=== PATIENT | female | born 1945 | race Caucasian/White ===

== ENCOUNTER 2017-07-20 09:18 | Emergency (ER) | payer BC ==
[2017-07-20 09:29] VITALS: BP 145/65
--- NOTE | 2017-07-20 11:31 | UC ---
Rika Rios Emily, scribed for Dionna Dacosta DO on 07/20/17 at 0942 . Respiratory Complaint HPI - HPI Summary HPI Summary: This patient is a 71 year old F presenting to urgent care with a chief complaint of productive cough that began 5 days ago. The patient rates the pain 1/10 in severity. Symptoms aggravated by deep breaths. Symptoms alleviated by nothing. Patient reports trouble swallowing d/t post nasal drip(resolved), sinus pain, fever (self-reported 100.2), nasal drainage, yellow sputum with cough, coughing spasms that can be painful, gagging from cough, and sinus headache. Patient denies SOB, trouble sleeping, ear ache, sore throat, abd pain , eye drainage, and blood in sputum of cough. Medications reviewed this visit. - History of Current Complaint Chief Complaint: UCRespiratory Stated Complaint: SINUS INFECTION Time Seen by Provider: 07/20/17 09:30 Hx Obtained From: Patient Onset/Duration: Sudden Onset, Lasting Days, Still Present Severity Initially: Mild Severity Currently: Mild Pain Intensity: 1 Pain Scale Used: 0-10 Numeric Character: Cough: Productive, Sputum Description: - Yellow Aggravating Factors: Deep Breaths Alleviating Factors: Nothing Associated Signs And Symptoms: Positive: Fever, Wheezing, URI, Nasal Congestion , Sinus Discomfort. Negative: Dyspnea, Chills, Pleuritic Chest Pain, Hemoptysis , Dizziness, Hoarseness - Allergies/Home Medications Allergies/Adverse Reactions: Allergies Allergy/AdvReac Type Severity Reaction Status Date / Time No Known Allergies Allergy Verified 07/20/17 09:23 Home Medications: Home Medications Cetirizine* [ZyrTEC 10 MG TAB*] 07/20/17 [History] Cholecalciferol [Vitamin D] 07/20/17 [History] Fluticasone NASAL SPRAY 50MCG* [Flonase NASAL SPRAY 50MCG*] 07/20/17 [History] Hydrochlorothiazide TAB* [Hydrodiuril TAB*] 07/20/17 [History] Simvastatin [Zocor 5 MG-] 20 mg 07/20/17 [History] PMH/Surg Hx/FS Hx/Imm Hx - Additional Past Medical History Additional PMH: Seasonal allergies. Hyperlipidemia Previously Healthy: No Cardiovascular History: Hypertension - Surgical History Surgical History: Yes Surgery Procedure, Year, and Place: c section, ovarian wedge resection - Family History Known Family History: Positive: Cardiac Disease - Social History Alcohol Use: Weekly Substance Use Type: None Smoking Status (MU): Never Smoked Tobacco Review of Systems Constitutional: Fever ENT: Nasal Discharge, Sinus Pain/Tenderness, Other - Positive trouble swallowing d/t post nasal drip(this sx resolved by friday) and yellow sputum with cough. Negative eye drainage, ear ache, sore throat, and blood in sputum with cough. Respiratory: Cough, Other - Negative SOB Cardiovascular: Chest Pain - pleuritic with cough Gastrointestinal: Other - Positive gagging from cough. Negative abd pain Neurological: Headache All Other Systems Reviewed And Are Negative: Yes Physical Exam Triage Information Reviewed: Yes Appearance: Well-Appearing, No Pain Distress, Well-Nourished Vital Signs: Initial Vital Signs Temp 98.5 F 07/20/17 09:25 Pulse 82 07/20/17 09:25 Resp 16 07/20/17 09:25 BP 145/65 07/20/17 09:25 Pulse Ox 98 07/20/17 09:25 Vital Signs Reviewed: Yes Eyes: Positive: Conjunctiva Clear. Negative: Discharge ENT: Positive: Hearing grossly normal, Pharynx normal, Nasal congestion, Nasal drainage, TMs normal, Other: - Sinus tenderness. Negative: Tonsillar swelling, Tonsillar exudate, Trismus, Muffled/hoarse voice Neck exam: Normal Neck: Positive: Supple Respiratory: Positive: Lungs clear, No respiratory distress, No accessory muscle use, Expiration - prolonged at bl bases, Other: - Prolonged expiration at the bilateral bases with few lateral wheezes, pt is a chest breather Cardiovascular: Positive: RRR, No Murmur Musculoskeletal: Positive: Other: - obvious scolisis Neurological: Positive: Alert, Muscle Tone Normal Psychological Exam: Normal Psychological: Positive: Age Appropriate Behavior Skin Exam: Normal Skin: Positive: Other - Warm, Dry, Normal Color UC Diagnostic Evaluation - Laboratory O2 Sat by Pulse Oximetry: 98 Respiratory Course/Dx - Course Course Of Treatment: This patient is a 71 year old F presenting to urgent care with a chief complaint of productive cough that began 5 days ago. The patient rates the pain 1/10 in severity. Symptoms aggravated by deep breaths. Symptoms alleviated by nothing. Patient reports trouble swallowing, sinus pain, fever ( self-reported 100.2), nasal drainage, CP, yellow sputum with cough, coughing spasms, gagging from cough, and sinus headache. Patient denies SOB, trouble sleeping, ear ache, sore throat, abd pain, eye drainage, and blood in sputum of cough. Medications reviewed this visit. Physical Exam Findings. Prolonged expiration at the bilateral bases with few lateral wheezes. Medical Decision Making. Patient will be discharged with prescription for Ventolin, Augmentin, and Tessalon with follow up from PCP. The patient is agreeable with this plan. - Differential Dx/Diagnosis Differential Diagnosis/HQI/PQRI: Bronchitis, Lower Resp Infection, Sinusitis Provider Diagnoses: Sinusitis. Bronchospam Discharge - Discharge Plan Condition: Stable Disposition: HOME Prescriptions: Albuterol HFA INHALER* [Ventolin HFA Inhaler*] 2 puff INH Q4H PRN #1 mdi PRN Reason: Sob/Wheezing Amoxicillin/Clavulanate TAB* [Augmentin TAB 875*] 875 mg PO BID #20 tab Benzonatate CAP* [Tessalon 100 MG CAP*] 100 mg PO TID #30 cap Patient Education Materials: Sinusitis (ED), Bronchospasm (ED) Referrals: Carolyn Salinas MD [Medical Doctor] - Additional Instructions: INHALED BRONCHODILATORS: You have received a prescription for an inhaled bronchodilator -- a medication which stimulates the airways in the lung to dilate. This improves the flow of air in asthma, bronchitis, and emphysema. These medicines have some similarity to adrenaline, and can cause similar side effects: shakiness, racing heart, and a sense of nervousness. These side effects decrease with time. Contact your doctor if these side effects are severe. Do not over-use the medicine. Too-frequent use of the inhaler may make it ineffective. Call your doctor if the inhaler is not controlling your symptoms at the prescribed doses. TESSALON PERLES: You have received a prescription for Tessalon Perles (benzonatate). This is a non-narcotic medicine for relief of cough. It usually works in about 15- 20 minutes and lasts around four hours. Tessalon Perles should be swallowed. They should not be chewed or dissolved in the mouth (this can produce temporary numbing of the mouth and choking can occur). If you develop any adverse effects such as wheezing, shortness of breath, hives, rash, itching, or lightheadedness, please return at once. ANTIBIOTICS ARE NOT CURRENTLY INDICATED FOR YOUR CONDITION. HOWEVER, IF YOUR SYMPTOMS WORSEN OR PERSIST FOR OVER THE NEXT 3-5 DAYS, YOU CAN TAKE THE FOLLOWING MEDICATION: AUGMENTIN: Augmentin is a mixture of amoxicillin and clavulanate. Amoxicillin is a member of the penicillin family. It covers the germs likely to cause ear, bronchial, and urinary infections better than plain penicillin. The addition of clavulanate allows it to cover staph infections of the skin, as well as resistant cases of ear and sinus infections. Your physician has chosen Augmentin for you because of the special nature of your situation. Augmentin is best taken with meals. Nausea after taking the medication is rare, but can occur. Diarrhea can occur, particularly in small children. Vaginal yeast infections, and oral thrush in infants are also common. Contact your physician if these problems occur. Allergy to penicillins is common. If you have had an allergic reaction to any drug of the penicillin family, you should never take any other penicillin. Notify your doctor at once if you develop hives, shortness of breath, swelling, or faintness. ANYTIME YOU TAKE AN ANTIBIOTIC, IT IS IMPORTANT TO REPLENISH THE BODY'S SUPPLY OF "GOOD BACTERIA." YOU CAN GET GOOD BACTERIA FROM HIGH QUALITY CULTURED FOODS SUCH LOCAL YOGURT, SOUR KRAUT, JEMMA [place]ADE[place], NATURALLY FERMENTED PICKLES AND PROBIOTIC DRINKS. YOU CAN ALSO GET GOOD BACTERIA FROM A PROBIOTIC SUPPLEMENT. The documentation as recorded by the Rika ch Emily accurately reflects the service I personally performed and the decisions made by , Dionna Dacosta DO.
== END 2017-07-20 10:14 | disposition home or self-care (01) ==
LOC: UCEAST 09:18
DX: J32.9 Chronic sinusitis, unspecified (principal); J98.01 Acute bronchospasm; E78.5 Hyperlipidemia, unspecified; I10 Essential (primary) hypertension
CPT/HCPCS: 99212; G0463